=== PATIENT | female | born 1960 | race American Indian/Alaskan Native ===

== ENCOUNTER 2022-04-11 17:15 | Inpatient (IN) | payer OTHER ==
--- NOTE | 2022-04-11 17:18 | Emergency Department Report ---
ED Neuro Deficit HPI - General Stated Complaint: CODE STROKE Time Seen by Provider: 04/11/22 17:18 - History of Present Illness Initial Comments: Patient is a 61-year-old female presents emergency department complaints of possible stroke. Patient has history of TIAs. Patient had acute onset confusion, left-sided facial droop trouble with speech at approximately 4 PM. She also reports some generalized weakness to the lower extremities. - Related Data Home Medications: Home Medications Medication Instructions Recorded Confirmed Last Taken Aspirin [Aspirin BABY CHEW TAB] 81 mg PO DAILY 08/13/13 07/21/16 Unknown lisinopriL [Zestril] 20 mg PO QDAY 08/13/13 07/21/16 Unknown amLODIPine [Norvasc] 5 mg PO DAILY 07/19/16 07/21/16 Unknown Previous Rx's Medication Instructions Recorded Last Taken Type Meclizine [Antivert] 25 mg PO TID PRN #30 tablet 07/19/16 Unknown Rx levETIRAcetam [Keppra TAB] 500 mg PO BID #60 tablet 07/22/16 Unknown Rx Allergies/Adverse Reactions: Allergies Allergy/AdvReac Type Severity Reaction Status Date / Time Sulfa (Sulfonamide Allergy Itching Verified 04/11/22 18:51 Antibiotics) ED Review of Systems ROS: Stated complaint: CODE STROKE Other details as noted in HPI Constitutional: denies: chills, fever Eyes: denies: eye pain, eye discharge, vision change ENT: denies: ear pain, throat pain Respiratory: denies: cough, shortness of breath, wheezing Cardiovascular: denies: chest pain, palpitations Endocrine: no symptoms reported Gastrointestinal: denies: abdominal pain, nausea, diarrhea Genitourinary: denies: urgency, dysuria, discharge Musculoskeletal: denies: back pain, joint swelling, arthralgia Skin: denies: rash, lesions Neurological: weakness, confusion. denies: headache, paresthesias Psychiatric: denies: anxiety, depression Hematological/Lymphatic: denies: easy bleeding, easy bruising ED Past Medical Hx - Past Medical History Hx Hypertension: Yes Hx CVA: Yes (tia may 2013) Hx Congestive Heart Failure: No Hx Diabetes: Yes Hx Pulmonary Embolism: No Hx GERD: Yes Hx Renal Disease: No Hx Sickle Cell Disease: Yes (sickle cell trait) Hx Arthritis: Yes Hx Seizures: No Hx Asthma: No Hx COPD: Yes Hx Tuberculosis: No Additional medical history: Marfan's syndrome, thoracic aortic dissection/aneurysm with endovascular stent graft placement - Surgical History Hx Pacemaker: Yes Hx Internal Defibrillator: Yes Additional Surgical History: bowel obstruction, triple aaa repair - Social History Smoking Status: Never Smoker - Medications Home Medications: Home Medications Medication Instructions Recorded Confirmed Last Taken Type Aspirin [Aspirin BABY CHEW TAB] 81 mg PO DAILY 08/13/13 07/21/16 Unknown History lisinopriL [Zestril] 20 mg PO QDAY 08/13/13 07/21/16 Unknown History Meclizine [Antivert] 25 mg PO TID PRN #30 tablet 07/19/16 07/21/16 Unknown Rx amLODIPine [Norvasc] 5 mg PO DAILY 07/19/16 07/21/16 Unknown History levETIRAcetam [Keppra TAB] 500 mg PO BID #60 tablet 07/22/16 Unknown Rx ED Neuro Physical Exam - General General appearance: alert, in no apparent distress Suspected Stroke: Yes - Head Head exam: Present: atraumatic, normocephalic - Eye Eye exam: Present: normal appearance - ENT ENT exam: Present: mucous membranes moist - Neck Neck exam: Present: normal inspection - Respiratory Respiratory exam: Present: normal lung sounds bilaterally. Absent: respiratory distress - Cardiovascular Cardiovascular Exam: Present: regular rate, normal rhythm. Absent: systolic murmur, diastolic murmur, rubs, gallop - GI/Abdominal GI/Abdominal exam: Present: soft, normal bowel sounds - Rectal Rectal exam: Present: deferred - Extremities Exam Extremities exam: Present: normal inspection - Back Exam Back exam: Present: normal inspection - Neurological Exam Neurological exam: Present: alert, oriented X3 - NIHSS Assessment Interval: Baseline 1a. Level of Consciousness: alert/keenly responsive 1b. LOC Questions: answers both correctly 1c. LOC Commands: performs tasks correctly 2. Best Gaze: normal 3. Visual: no visual loss 4. Facial Palsy: normal symmetrical movement 5b. Motor Arm Right: no drift 5a. Motor Arm Left: no drift 6a. Motor Leg Left: no drift 6b. Motor Leg Right: no drift 7. Limb Ataxia: absent 8. Sensory: normal 9. Best Language: no aphasia 10. Dysarthria: normal 11. Extinction/Inattention: no abnormality Total Score: 0 Stroke Severity: No Stroke Symptoms - Psychiatric Psychiatric exam: Present: normal affect, normal mood - Skin Skin exam: Present: warm, dry, intact, normal color. Absent: rash ED Course Vital Signs 04/11/22 04/11/22 04/11/22 17:46 18:01 18:10 Temperature 98.6 F Pulse Rate 87 Respiratory 21 Rate Blood Pressure 153/68 O2 Sat by Pulse 97 97 100 Oximetry 04/11/22 04/11/22 18:15 18:45 Temperature Pulse Rate 67 69 Respiratory 14 15 Rate Blood Pressure 153/68 153/68 O2 Sat by Pulse 97 97 Oximetry - Reevaluation(s) Reevaluation #1: 04/11/22 19:12 CT head is negative patient to receive aspirin. Patient also has a 13mm possible carotid body mass. I discussed with neurology who recommend consultation with vascular surgery. We are consulting them. Patient was also reassessed given her history of Marfan's and also thoracic and abdominal aortic aneurysms. Patient currently has no chest pain, no abdominal pain. - Lab Data Result diagrams: 04/11/22 17:43 04/11/22 17:43 Lab Results 04/11/22 04/11/22 04/11/22 Range/Units 17:43 17:43 17:43 WBC 4.8 (4.5-11.0) K/mm3 RBC 5.23 H (3.65-5.03) M/mm3 Hgb 12.0 (10.1-14.3) gm/dl Hct 38.1 (30.3-42.9) % MCV 73 L (79-97) fl MCH 23 L (28-32) pg MCHC 31 (30-34) % RDW 27.8 H (13.2-15.2) % Plt Count 183 (140-440) K/mm3 PT 14.3 (12.2-14.9) Sec. INR 1.00 (0.87-1.13) APTT 29.6 (24.2-36.6) Sec. Sodium (137-145) mmol/L Potassium (3.6-5.0) mmol/L Chloride (98-107) mmol/L Carbon Dioxide (22-30) mmol/L Anion Gap mmol/L BUN (7-17) mg/dL Creatinine (0.6-1.2) mg/dL Estimated GFR ml/min BUN/Creatinine Ratio % Glucose (65-100) mg/dL POC Glucose (70-105) mg/dL Calcium (8.4-10.2) mg/dL Total Bilirubin (0.1-1.2) mg/dL AST (5-40) units/L ALT (7-56) units/L Alkaline Phosphatase (35-129) units/L Total Creatine Kinase 53 (30-135) units/L CK-MB (CK-2) 1.1 (0.0-4.0) ng/mL CK-MB (CK-2) Rel Index 2.0 (0-4) Troponin T < 0.010 (0.00-0.029) ng/mL Total Protein (6.3-8.2) g/dL Albumin (3.9-5) g/dL Albumin/Globulin Ratio % 04/11/22 04/11/22 Range/Units 17:43 18:49 WBC (4.5-11.0) K/mm3 RBC (3.65-5.03) M/mm3 Hgb (10.1-14.3) gm/dl Hct (30.3-42.9) % MCV (79-97) fl MCH (28-32) pg MCHC (30-34) % RDW (13.2-15.2) % Plt Count (140-440) K/mm3 PT (12.2-14.9) Sec. INR (0.87-1.13) APTT (24.2-36.6) Sec. Sodium 137 (137-145) mmol/L Potassium 3.9 (3.6-5.0) mmol/L Chloride 103.9 (98-107) mmol/L Carbon Dioxide 18 L (22-30) mmol/L Anion Gap 19 mmol/L BUN 14 (7-17) mg/dL Creatinine 1.2 (0.6-1.2) mg/dL Estimated GFR 55 ml/min BUN/Creatinine Ratio 12 % Glucose 136 H (65-100) mg/dL POC Glucose 133 H (70-105) mg/dL Calcium 9.4 (8.4-10.2) mg/dL Total Bilirubin 0.50 (0.1-1.2) mg/dL AST 11 (5-40) units/L ALT 10 (7-56) units/L Alkaline Phosphatase 63 (35-129) units/L Total Creatine Kinase (30-135) units/L CK-MB (CK-2) (0.0-4.0) ng/mL CK-MB (CK-2) Rel Index (0-4) Troponin T (0.00-0.029) ng/mL Total Protein 7.0 (6.3-8.2) g/dL Albumin 4.1 (3.9-5) g/dL Albumin/Globulin Ratio 1.4 % - EKG Data -: EKG Interpreted by Me EKG shows normal: sinus rhythm Rate: normal Interpretation: other (Prolonged RI, left atrial enlargement, right bundle branch block, nonspecific T wave changes in the lateral leads) - Radiology Data Radiology results: report reviewed, image reviewed - Medical Decision Making Patient is a 61-year-old female presents in the emergency department complaint of strokelike symptoms. Patient states that she has generalized weakness, left- sided facial droop, trouble with her speech. Patient is made a stroke alert and is sent to the CAT scan emergently. Patient did have stroke score prior to going to the CAT scan which is notable for stroke score was 0. Telemetry neurology has been present and has also evaluated patient. Plan to follow the recommendations patient likely to be admitted for stroke work-up. Given stroke score of 0 tPA is not considered - Core Measures AMI Core Measures Followed: Yes Critical care attestation.: If time is entered above; I have spent that time in minutes in the direct care of this critically ill patient, excluding procedure time. ED Disposition Clinical Impression: TIA (transient ischemic attack), Carotid body tumor, Lung mass Disposition: ADMITTED INPATIENT Is pt being admited?: Yes Does the pt Need Aspirin: Yes Condition: Stable
--- NOTE | 2022-04-11 17:52 | Cat Scan Report ---
CT head/brain wo con INDICATION / CLINICAL INFORMATION: 61 years Female; CODE STROKE CALL [phone] Stroke symptoms. TECHNIQUE: Routine CT head without contrast. All CT scans at this location are performed using CT dos e reduction for ALARA by means of automated exposure control. COMPARISON: None FINDINGS: BRAIN / INTRACRANIAL CONTENTS: No acute hemorrhage, mass effect, midline shift, hydrocephalus, or acu te, large territorial infarct. No signs of significant atrophy or chronic infarct. There are [id number] areas of decreased attenuation in the white matter of the cerebral hemisph eres. These are nonspecific findings and may be related to microangiopathy (hypertension, diabetes, a therosclerosis), given the patient's age. CRANIOCERVICAL JUNCTION: No significant abnormality. ORBITS: No significant abnormality of visualized orbits. SINUSES / MASTOIDS: Visualized paranasal sinuses and mastoid air cells are essentially clear. ADDITIONAL FINDINGS: None. IMPRESSION: 1. No focal mass, hemorrhage, hydrocephalus, or acute, large territorial infarct. Follow-up with diff usion imaging by MRI, as clinically warranted. CODE STROKE: Exam Completed (INVISIBLE BRACES ORTHODONTIST/CDT): 04/11/2022 4:40 PM Exam Reviewed (INVISIBLE BRACES ORTHODONTIST/CDT): 4:42 PM Time of Communication (INVISIBLE BRACES ORTHODONTIST/CDT): 4:45 PM Licensed Practitioner Receiving Report: Dr. Donovan Signer Name: Darren Yang MD, III Signed: 04/11/2022 5:47 PM Workstation Name: [id number]
--- NOTE | 2022-04-11 18:21 | Cat Scan Report ---
CTA neck without and with intravenous contrast material CLINICAL HISTORY: stroke sx 100 ML OMNI 350 TECHNIQUE: Following acquisition of a timing bolus 0.625 mm thick contiguous axial scans were obtained from aort ic arch to the skull base during rapid bolus intravenous contrast infusion. In addition to evaluation of axial source images multiplanar reconstructions were produced and reviewed for this report. 3 delroy ne MIP reconstructions were produced and reviewed. Contrast dose report: Omnipaque 350: 100 ml, administered intravenously All CT examinations performed at this facility utilize modulated dose reduction, iterative reconstruc tion or weight-based dosing, as appropriate, to obtain a radiation dose which is as low as can reason ably be achieved. FINDINGS: Thoracic aorta: Patient is status post endograft placement in the thoracic aorta. The origin and prox imal left subclavian artery appear to be excluded. There is a left common carotid artery and left sub clavian graft which demonstrates patency based on contrast opacification of this vascular graft. Ther e is no indication of stenosis at the origin of the brachiocephalic artery which is a common origin w ith the left common carotid artery.. Right carotid artery: Moderate tortuosity of the mid and distal right common carotid artery is observ ed. The vessel is large in caliber consistent with mild dolichoectasia. No additional abnormalities a re seen along the course of the RCCA, at the right carotid bifurcation or along the cervical portions of the ADRIAN. Left carotid artery: There is a well-circumscribed 13 mm diameter mass located between the proximal l eft internal carotid artery and left external carotid artery, straddling the carotid bifurcation. The re is peripheral calcification or enhancement of this lesion. Based on location of the finding possib ility of carotid body tumor. Differential diagnosis includes vagal fibroma or neuroforaminal versus e nlarged, hypervascular lymph node. Note is made of moderate tortuosity of the distal LICA which is mi ldly dilated compatible with dolichoectasia of this vessel. No additional abnormalities are noted wan ng the course of the left common carotid artery, at the left carotid bifurcation or along the course of the cervical segments of the LICA. Posterior circulation: Right vertebral artery is dominant. A hypoplastic left vertebral artery is obs erved. Contrast opacification of the left vertebral artery may be due to retrograde flow in this vess el. Contrast opacification of the V1 and proximal V2 segments of the left vertebral artery is not obs erved. The degree of stenosis, if any, is determined utilizing NASCET like criteria. In this case there is no indication of hemodynamically significant stenosis at the carotid bifurcations or elsewhere. There is a well-circumscribed 13 mm diameter mass located between the proximal left internal carotid artery and left external carotid artery, straddling the carotid bifurcation. There is peripheral calc ification or enhancement of this lesion. Based on location of the finding possibility of carotid body tumor. Differential diagnosis includes vagal fibroma or neuroforaminal versus enlarged, hypervascula r lymph node. Evaluation of the lung apices is unremarkable for a mixed attenuation groundglass and solid left uppe r lobe lung nodule measuring about 18 mm in diameter. This is increased in size compared to CTA chest 07/21/2016 at which time an 8 mm lesion was present in a similar location. This finding is suspicious for bronchogenic carcinoma. Bullous changes are observed along the medial aspect of both upper lobes and at the left lung apex Evaluation of the nonvascular soft tissue structures reveal no additional abnormality. There is no ot her indication of cervical lymphadenopathy. No abnormalities are seen along the course of the airway. Visualized portions of the parotid glands and the submandibular salivary glands have a normal appear ance. Thyroid gland has a normal appearance. . Evaluation of the cervical spine is remarkable for widespread cervical spondylosis without evidence o f central canal stenosis. IMPRESSION: 1. No indication of hemodynamically significant stenosis at the carotid bifurcations. 2. Status post endovascular stent placement secured and status post vascular bypass graft between the left common carotid artery and left subclavian artery. 3. 18 mm diameter lung lesion left upper lobe suspicious for bronchogenic carcinoma. 4. 13 mm mass located at the left carotid bifurcation suspicious for carotid body tumor as noted abov e. CTA head with intravenous contrast CLINICAL HISTORY: stroke sx 100 ML OMNI 350 TECHNIQUE: 0.625 mm thick contiguous axial scans were obtained from the skull base to the skull vertex during r apid bolus administration of intravenous contrast material. Multiplanar reconstructions were produced in the coronal and sagittal planes. In addition 3 plane MIP instructions were produced and reviewed for this report. The axial source images and reconstructed images were reviewed for this report. CONTRAST DOSE REPORT: Omnipaque 350: 100 ml administered intravenously. All CT scans at this location are performed using CT dose reduction for ALARA by means of automated e xposure control. FINDINGS: Internal carotid arteries: Dolichoectasia of the internal carotid arteries is demonstrated bilaterall y. There is no indication of intercranial stenosis along the course of the internal carotid arteries. Middle cerebral arteries:Normal and symmetrical M1 segments of the middle cerebral arteries are demon strated. No abnormalities are seen on evaluation of the insular or opercular branches. Anterior cerebral arteries:Bilaterally symmetrical A1 segments are demonstrated. No abnormalities are seen along the course of the A2 segments or their visualized pericallosal branches. Anterior communi cating artery is not identified. Vertebral arteries: Right vertebral artery is dominant. Both vertebral arteries reach the basilar art viktor origin. Basilar artery: Basilar artery is diminutive in size to large part due to the presence of origi n of both posterior cerebral arteries. Posterior cerebral arteries:Bilaterally symmetrical posterior cerebral arteries are identified. [place]:Not intact. see above. Dural sinuses: Dural venous sinuses are well demonstrated on this exam. There is no evidence of dural sinus thrombosis. IMPRESSION: 1. 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 2. No indication of hemodynamically significant stenosis or large vessel occlusion. Signer Name: Ammon Johnson MD Signed: 04/11/2022 6:17 PM Workstation Name: [id number]
--- NOTE | 2022-04-11 18:31 | Consultation ---
History of Present Illness History of present illness: [facility] Consult Note # Demographics Consult Type: Acute Stroke Level 1 (0-4.5 hrs) Patient Location: Emergency Room First Name: Shaista Last Name: Violet Date of : 1960 Age: 61 Gender: Female Facility: [facility] Time of Initial Page ( Time): 04/11/2022, 17:06 Time of Return Call ( Time): 04/11/2022, 17:06 # HPI Chief Complaint: speech changes History: 61F with prior strokes/TIA (2014), PPM for bradycardia, Marfan's syndrome complicated by aortic dissection (2005), HTN presents with difficulty speaking and generalized weakness. Seen to have a left-sided facial droop, no drift in limbs. Symptoms onset at 1600. Feels somewhat lightheaded. Just on ASA. BP with EMS 192/102. Had an endoscopy on Saturday for nausea/GERD. Possible Thrombolytic candidate: not on warfarin or NOACs no intracranial hemorrhage history # Scores Time of exam and NIHSS (): 04/11/2022, 17:12 Level of Consciousness 1a: [0] = Alert; keenly responsive LOC Questions 1b: [0] = Answers both questions correctly LOC Commands 1c: [0] = Performs both tasks correctly Best Gaze 2: [0] = Normal Visual 3: [0] = No visual loss Facial Palsy 4: [0] = Normal symmetrical movements Motor Arm Left 5a: [0] = No drift Motor Arm Right 5b: [0] = No drift Motor Leg Left 6a: [0] = No drift Motor Leg Right 6b: [0] = No drift Limb Ataxia 7: [0] = Absent Sensory 8: [0] = Normal Best Language 9: [0] = No aphasia Dysarthria 10: [0] = Normal Extinction and Inattention 11: [0] = No abnormality NIHSS Total: 0 # Data Head CT: no bleed per radiologist read CTA Head: no large vessel occlusion per radiologist read CTA Neck: patent vessels per radiologist read 13mm well circumscribed mass between internal and external carotids at the bifurcaiton, concerning for possible carotid body tumor # Assessment Impression: Transient Ischemic Attack High Risk # Plan Thrombolytic/Intervention: NOT IV Thrombolysis or IA Intervention candidate Thrombolytic Exclusion (< 3 hour window): NIHSS = 0 Intraarterial Exclusion: no large vessel occlusion (LVO) non-disabling Target Blood Pressure: SBP < 160 DBP < 105 Medication: ASA 325 x1 then 81 daily Consult vascular surgery re: carotid mass; if nothing to do, OK to start Plavix 300 x1 then 75 daily x3 weeks High intensity statin for LDL < 70 goal Other: consult on-site neurology service for full work-up and evaluation recommendations telemetry monitoring I have discussed my recommendations with the referring provider Disposition: admit # Logistics Telemedicine: Interactive 2 way audio and visual telecommunication technology was utilized during this visit Electronically signed at 04/11/2022 18:30 (Eastern Time) by Vu Caldwell MD Medications and Allergies Allergies Allergy/AdvReac Type Severity Reaction Status Date / Time Sulfa (Sulfonamide Allergy Itching Verified 07/19/16 10:48 Antibiotics) Home Medications Medication Instructions Recorded Confirmed Last Taken Type Aspirin [Aspirin BABY CHEW TAB] 81 mg PO DAILY 08/13/13 07/21/16 Unknown History lisinopriL [Zestril] 20 mg PO QDAY 08/13/13 07/21/16 Unknown History Meclizine [Antivert] 25 mg PO TID PRN #30 tablet 07/19/16 07/21/16 Unknown Rx amLODIPine [Norvasc] 5 mg PO DAILY 07/19/16 07/21/16 Unknown History levETIRAcetam [Keppra TAB] 500 mg PO BID #60 tablet 07/22/16 Unknown Rx Physical Examination - Vital Signs Vital Signs: Vital Signs Pulse Ox 97 04/11/22 17:46
[2022-04-11 18:34] LABS: Hematocrit 38.1 % (30.3-42.9); Mean Corpuscular HGB Conc 31 % (30-34); Mean Corpuscular Volume 73 fl (79-97); Platelet Count 183 K/mm3 (140-440); Red Blood Count 5.23 M/mm3 (3.65-5.03)
[2022-04-11 18:36] LABS: Red Cell Distribution Width 27.8 % (13.2-15.2)
[2022-04-11 18:54] LABS: Partial Thromboplastin Time 29.6 Sec. (24.2-36.6)
[2022-04-11 18:57] LABS: Creatine Kinase MB 1.1 ng/mL (0.0-4.0)
[2022-04-11 19:02] LABS: Albumin 4.1 g/dL (3.9-5); Calcium 9.4 mg/dL (8.4-10.2)
[2022-04-11] MEDS ORDERED: ASPIRIN 81 MG TAB CHEW PO ONE (19:13)
[2022-04-11] MEDS ORDERED: ALBUTEROL 2.5 MG/3 ML NEBU IH PRN (19:25)
[2022-04-11] MEDS ORDERED: ACETAMINOPHEN 325 MG TAB PO PRN (19:25)
[2022-04-11] MEDS ORDERED: MAGNESIUM HYDROXIDE (MOM) ORAL LIQD UDC PO PRN (19:25)
[2022-04-11] MEDS ORDERED: ONDANSETRON 4 MG/2 ML INJ IV PRN (19:25)
[2022-04-11] MEDS ORDERED: PROMETHAZINE 25 MG RECT SUPP PR PRN (19:25)
[2022-04-11] MEDS ORDERED: METOCLOPRAMIDE 10 MG TAB PO PRN (19:25)
[2022-04-11] MEDS ORDERED: HYDROmorphone 0.5 MG/0.5 ML INJ IV PRN (19:25)
--- NOTE | 2022-04-11 19:25 | History and Physical Report ---
History of Present Illness Chief complaint: I feel weak, left side and I could not talk History of present illness: 61 YO Female with Marfans Syndrome, Seizure Disorder, GERD, COPD, CVA, DM, Sickle Cell Trait, Anxiety about Health, presents to ED for evaluation. Patient reports "I feel weak on my left side and I could not talk". Patient states that she has experienced a sudden onset of left-sided facial weakness as well as difficulty speaking at approximate 1600 hrs. EMS was notified and upon arrival the patient was found to be in distress with a new focal neurologic deficit. A code stroke was called and the patient was transported to [facility] for further care and evaluation of the aforementioned symptoms. The patient was seen and evaluated in the emergency department department all lab and imaging studies reviewed. Patient found to have clinical symptoms consistent with CVA. The patient admitted to medical floor and initiated on CVA protocol. Teleneurology consulted. Pt denies fever, chills, CP, Palpitations, NVD, BRBPR, Hemoptysis, leg swelling, calf pain, head trauma, prolonged immobility/travel, individual/family history of DVT/PE, productive cough, skin rash, or recent ill contacts. Prior admission on 07/21/2016 reviewed. All medication listed at time of admission has been reconciled. Advanced care planning conducted in ED. Past History Past Medical History: COPD, stroke, other (See HPI) Past Surgical History: abd. aortic aneurysm repair Social history: single. denies: smoking, alcohol abuse, prescription drug abuse Family history: diabetes, hypertension Medications and Allergies Allergies Allergy/AdvReac Type Severity Reaction Status Date / Time Sulfa (Sulfonamide Allergy Itching Verified 04/11/22 18:51 Antibiotics) Home Medications Medication Instructions Recorded Confirmed Last Taken Type Aspirin [Aspirin BABY CHEW TAB] 81 mg PO DAILY 08/13/13 07/21/16 Unknown History lisinopriL [Zestril] 20 mg PO QDAY 08/13/13 07/21/16 Unknown History Meclizine [Antivert] 25 mg PO TID PRN #30 tablet 07/19/16 07/21/16 Unknown Rx amLODIPine [Norvasc] 5 mg PO DAILY 07/19/16 07/21/16 Unknown History levETIRAcetam [Keppra TAB] 500 mg PO BID #60 tablet 07/22/16 Unknown Rx Review of Systems Constitutional: no weight loss, no fever, no chills, no sweats Ears, nose, mouth and throat: no ear pain, no tinnitis, no decreased hearing, no nasal congestion Breasts: no change in shape Cardiovascular: no chest pain, no orthopnea, no edema, no syncope, no lightheadedness Respiratory: no cough Gastrointestinal: no abdominal pain, no nausea, no constipation, no change in bowel habits, no coffee ground emesis Genitourinary Female: no pelvic pain, no flank pain, no dysuria, no urinary frequency, no urgency Rectal: no pain, no incontinence, no bleeding Musculoskeletal: no neck stiffness, no shooting arm pain, no arm numbness/tin gling, no shooting leg pain, no leg numbness/tingling Integumentary: no rash, no redness, no wounds, no boils Neurological: weakness, lack of coordination, change in speech, gait dysfunction, motor disturbance, no head injury, no transient paralysis Psychiatric: no anxiety, no change in sleep habits, no hypersomnia, no change in appetite, no suicidal ideation Endocrine: no heat intolerance, no polyphagia, no polydipsia, no excessive sweating Hematologic/Lymphatic: no easy bleeding Allergic/Immunologic: no urticaria Exam - Constitutional Vitals: Temp Pulse Resp BP Pulse Ox 98.6 F 69 15 153/68 97 04/11/22 18:10 04/11/22 18:45 04/11/22 18:45 04/11/22 18:45 04/11/22 18:45 General appearance: Present: mild distress - EENT Eyes: Present: PERRL ENT: hearing intact, clear oral mucosa - Neck Neck: Present: supple, normal ROM - Respiratory Respiratory effort: normal Respiratory: bilateral: CTA - Cardiovascular Heart Sounds: Present: S1 & S2. Absent: rub, click - Extremities Extremities: pulses symmetrical, No edema Peripheral Pulses: within normal limits - Abdominal General gastrointestinal: Present: soft, non-tender, non-distended, normal bowel sounds Female genitourinary: Present: normal - Integumentary Integumentary: Present: clear, warm, dry - Musculoskeletal Musculoskeletal: gait normal, strength equal bilaterally - Psychiatric Psychiatric: appropriate mood/affect, intact judgment & insight - Neurologic Neurologic: CNII-XII intact, moves all extremities HEART Score - HEART Score Troponin: Troponin T < 0.010 ng/mL (0.00-0.029) 04/11/22 17:43 Results - Labs CBC & Chem 7: 04/11/22 17:43 04/11/22 17:43 Labs: Abnormal lab results 04/11/22 04/11/22 04/11/22 Range/Units 17:43 17:43 18:49 RBC 5.23 H (3.65-5.03) M/mm3 MCV 73 L (79-97) fl MCH 23 L (28-32) pg RDW 27.8 H (13.2-15.2) % Carbon Dioxide 18 L (22-30) mmol/L Glucose 136 H (65-100) mg/dL POC Glucose 133 H (70-105) mg/dL Assessment and Plan - Patient Problems (1) CVA (cerebral vascular accident) Current Visit: Yes Status: Acute Plan to address problem: CVA protocol: CT head, neuro check, seizure precaution aspiration caution, fall precautions, physical therapy consulted, Occupational Therapy consulted, speech therapy consulted, carotid Doppler, echocardiogram, antiplatelet therapy, supportive care. (2) Carotid body tumor Current Visit: Yes Status: Acute Plan to address problem: Vascular surgery team consulted. Further care and evaluation as per vascular surgery team. (3) Lung mass Current Visit: Yes Status: Acute Plan to address problem: Outpatient oncology follow-up, supportive care. (4) DVT prophylaxis Current Visit: No Status: Acute Plan to address problem: SCD to bilateral lower extremities while in bed (5) Advance care planning Current Visit: Yes Status: Acute Plan to address problem: Disease education done, care plan discussed, diagnoses discussed, prognosis discussed, patient is full code. Patient knowledges understanding and agreement with care plan, +30 minutes. (6) Preventative health care Current Visit: Yes Status: Acute Plan to address problem: Patient counseled regarding balanced diet, outpatient follow-up with primary care physician for all age and risk factor appropriate screening test. +30 minutes.
[2022-04-11] MEDS ORDERED: MECLIZINE 25 MG TAB PO PRN (19:28)
[2022-04-11 20:59] LABS: Thrombin Time 57.7 Sec. (15.1-19.6)
[2022-04-11 22:07] LABS: Anisocytosis 3+; Basophils % (Manual) 0 % (0.0-1.8); Hypochromasia 1+; Monocytes % (Manual) 0 % (0.0-7.3); Total Cells Counted 100
[2022-04-11 22:08] LABS: Ovalocytes 1+
[2022-04-11 22:10] LABS: Platelet Estimate Consistent w Auto
[2022-04-11] MEDS: levETIRAcetam 500 MG TAB PO SCH (22:42)
[2022-04-12] MEDS: oxyCODONE /ACETAMINOPHEN 5-325MG TAB PO PRN (04:50)
[2022-04-12] MEDS ORDERED: amLODIPine 5 MG TAB PO SCH (10:00)
[2022-04-12] MEDS: levETIRAcetam 500 MG TAB PO SCH ×2 (10:26→22:11)
[2022-04-12] MEDS: LISINOPRIL 20 MG TAB PO SCH (10:26)
[2022-04-12] MEDS: amLODIPine 5 MG TAB PO SCH (11:49)
[2022-04-12] MEDS: ASPIRIN 325 MG TAB PO SCH (11:49)
--- NOTE | 2022-04-12 12:12 | Electrocardiograph Report ---
[facility] [place] Test Date: 2022-04-11 Test Time: 18:17:32 Pat Name: ANGELO CROCKETT Department: Room: A474 1 Gender: F Inspector And Tester: ABRAN : 1960 Requested By: RUDDY JACOBS Order Number: [id number] Reading MD: Dustin Escobar Measurements Intervals [place] Rate: 70 P: 24 WY: 230 QRS: 45 QRSD: 130 T: 41 QT: 447 QTc: 482 Interpretive Statements Sinus rhythm Prolonged WY interval Probable left atrial enlargement Right bundle branch block Nonspecific T abnormalities, lateral leads No previous ECG available for comparison Electronically Signed On 04-12-2022 12:12:06 EDT by Dustin Escobar
--- NOTE | 2022-04-12 13:16 | Progress Note ---
Assessment and Plan (1) CVA (cerebral vascular accident) Current Visit: Yes Status: Acute Plan to address problem: CVA protocol: CT head, neuro check, seizure precaution aspiration caution, fall precautions, physical therapy consulted, Occupational Therapy consulted, speech therapy consulted, carotid Doppler, echocardiogram, antiplatelet therapy, supportive care. (2) Carotid body tumor Current Visit: Yes Status: Acute Plan to address problem: Vascular surgery team consulted. Further care and evaluation as per vascular surgery team. (3) Lung mass Current Visit: Yes Status: Acute Plan to address problem: Outpatient oncology follow-up, supportive care. (4) DVT prophylaxis Current Visit: No Status: Acute Plan to address problem: SCD to bilateral lower extremities while in bed (5) Advance care planning Current Visit: Yes Status: Acute Plan to address problem: Disease education done, care plan discussed, diagnoses discussed, prognosis discussed, patient is full code. Patient knowledges understanding and agreement with care plan, +30 minutes. (6) Preventative health care Current Visit: Yes Status: Acute Plan to address problem: Patient counseled regarding balanced diet, outpatient follow-up with primary care physician for all age and risk factor appropriate screening test. +30 minutes. -- Ordered MRI brain and neurology consult. But patient cannot get MRI as she has a pacemaker. Will wait for neurology evaluation. We will get a chest x-ray for patient history of lung mass. 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 Continue to follow. Subjective Date of service: 04/12/22 Interval history: Patient seen and examined. Medical records and medication list reviewed. No acute event overnight noted by the RN. Patient denies any chest pain or difficulty breathing. Patient is tolerating diet. Pending MRI study. Discussed plan of care at bedside with patient. Objective - Exam Narrative Exam: GENERAL: well-developed elderly -[place] obese female lying on bed appeared to be in no discomfort. HEENT: Normocephalic. Atraumatic. No conjunctival congestion or icterus. Patient has moist mucous membranes. NECK: Supple. Trachea midline. CHEST/LUNGS: Clear to auscultated bilaterally, breathing nonlabored. No wheezes crackles or rhonchi. HEART/CARDIOVASCULAR: Regular in rate and rhythm. S1 and S2 positive. ABDOMEN: Abdomen is soft, nontender. Patient has normal bowel sounds. SKIN: There is no rash. Warm and dry. NEURO: No focal motor deficit. Follows command. MUSCULOSKELETAL: No joint effusion or tenderness. EXTRIMITY: No edema, no cyanosis or clubbing. PSYCH: Cooperative. - Constitutional Vitals: Vital Signs - 12hr 04/12/22 07:41 Temperature 98.5 F Pulse Rate 67 Respiratory 18 Rate Blood Pressure 130/77 O2 Sat by Pulse 94 Oximetry - Labs CBC & Chem 7: 04/11/22 17:43 04/11/22 17:43 Labs: Abnormal lab results 04/11/22 04/11/22 04/11/22 Range/Units 17:43 17:43 17:43 RBC 5.23 H (3.65-5.03) M/mm3 MCV 73 L (79-97) fl MCH 23 L (28-32) pg RDW 27.8 H (13.2-15.2) % Seg Neuts % (Manual) 81.0 H (40.0-70.0) % Lymphocytes # (Manual) 0.8 L (1.2-5.4) K/mm3 Thrombin Time 57.7 H (15.1-19.6) Sec. Carbon Dioxide 18 L (22-30) mmol/L Glucose 136 H (65-100) mg/dL POC Glucose (70-105) mg/dL 04/11/22 Range/Units 18:49 RBC (3.65-5.03) M/mm3 MCV (79-97) fl MCH (28-32) pg RDW (13.2-15.2) % Seg Neuts % (Manual) (40.0-70.0) % Lymphocytes # (Manual) (1.2-5.4) K/mm3 Thrombin Time (15.1-19.6) Sec. Carbon Dioxide (22-30) mmol/L Glucose (65-100) mg/dL POC Glucose 133 H (70-105) mg/dL HEART Score - HEART Score Troponin: Troponin T < 0.010 ng/mL (0.00-0.029) 04/11/22 17:43
--- NOTE | 2022-04-12 14:30 | XRay Report ---
CHEST 1 VIEW INDICATION: lung mass. COMPARISON: 08/14/[address] neck yesterday. FINDINGS: Support devices: Cardiac leads project in expected position. Descending thoracic aortic stent graft i s noted, inferior extent is increased when compared with the remote prior. Heart: Normal. Lungs/Pleura: No acute pulmonary or pleural findings. IMPRESSION: 1. Groundglass density at the left lung apex seen on the CT neck from yesterday is not visualized rad iographically. Lungs are clear. Signer Name: Enzo Johns MD Signed: 04/12/2022 2:26 PM Workstation Name: [id number]
--- NOTE | 2022-04-12 14:40 | Consultation ---
History of Present Illness Consult date: 04/12/22 Reason for Consult: TIA Chief complaint: Light-headedness with nausea/emesis with unsteadiness History of present illness: 61 yo right-handed female with cva, htn, dm, ppm for bradycardia, marfans syndrome, aortic dissection w/ stenting, who presents to the hospital where she felt dizzy (light-headed) and something was wrong with her speech (~16:00 yesterday), and then nausea/emesis and then noticed a tendency to lean to the left side, along with a left facial droop. She notes that her symptoms lasted until she arrived to the ED. Currently, she is at her baseline. She is aware of the bronchogenic mass (> 2 years) and it is being monitored via oncology. She notes she suffered a similar episode a few years ago and she was diagnosed with a stroke at the time. Past History Past Medical History: COPD, stroke, other (marfans syndrome) Past Surgical History: abd. aortic aneurysm repair Social history: single. denies: smoking, alcohol abuse, prescription drug abuse Family history: diabetes, hypertension Medications and Allergies Allergies Allergy/AdvReac Type Severity Reaction Status Date / Time Sulfa (Sulfonamide Allergy Itching Verified 04/11/22 18:51 Antibiotics) Home Medications Medication Instructions Recorded Confirmed Last Taken Type Aspirin [Aspirin BABY CHEW TAB] 81 mg PO DAILY 08/13/13 04/12/22 04/11/22 History amLODIPine [Norvasc] 10 mg PO DAILY 07/19/16 04/12/22 04/11/22 History Ferrous Sulfate [Iron 325 MG] 325 mg PO DAILY 04/12/22 04/12/22 04/11/22 History Latanoprost 0.005% 1 drop OU QHS 04/12/22 04/12/22 04/11/22 History Losartan [Cozaar] 100 mg PO DAILY 04/12/22 04/12/22 04/11/22 History Active Meds: Active Medications Acetaminophen (Acetaminophen 325 Mg Tab) 650 mg PO Q4H PRN PRN Reason: Pain, Mild (1-3) Albuterol (Albuterol 2.5 Mg/3 Ml Nebu) 2.5 mg IH Q3HRT PRN PRN Reason: Shortness Of Breath Amlodipine Besylate (Amlodipine 5 Mg Tab) 10 mg PO DAILY RAINE Last Admin: 04/12/22 11:49 Dose: 10 mg Aspirin (Aspirin 325 Mg Tab) 325 mg PO QDAY [facility] Last Admin: 04/12/22 11:49 Dose: 325 mg Atorvastatin Calcium (Atorvastatin 40 Mg Tab) 40 mg PO QHS [facility] Last Admin: 04/11/22 22:43 Dose: Not Given Bisacodyl (Bisacodyl 10 Mg Rect Supp) 10 mg HI QDAY PRN PRN Reason: Constipation Hydromorphone HCl (Hydromorphone 0.5 Mg/0.5 Ml Inj) 0.5 mg IV Q23H PRN PRN Reason: Pain , Severe (7-10) Levetiracetam (Levetiracetam 500 Mg Tab) 500 mg PO BID [facility] Last Admin: 04/12/22 10:26 Dose: Not Given Lisinopril (Lisinopril 20 Mg Tab) 20 mg PO QDAY [facility] Last Admin: 04/12/22 10:26 Dose: Not Given Magnesium Hydroxide (Magnesium Hydroxide (Mom) Oral Liqd Udc) 30 ml PO Q4H PRN PRN Reason: Constipation Meclizine HCl (Meclizine 25 Mg Tab) 25 mg PO TID PRN PRN Reason: Vertigo Metoclopramide HCl (Metoclopramide 10 Mg Tab) 10 mg PO Q6H PRN PRN Reason: Nausea And Vomiting Ondansetron HCl (Ondansetron 4 Mg/2 Ml Inj) 4 mg IV Q8H PRN PRN Reason: Nausea And Vomiting Oxycodone/Acetaminophen (Oxycodone /Acetaminophen 5-325mg Tab) 1 tab PO Q16H PRN PRN Reason: Pain, Moderate (4-6) Last Admin: 04/12/22 04:50 Dose: 1 tab Promethazine HCl (Promethazine 25 Mg Rect Supp) 25 mg HI Q6H PRN PRN Reason: Nausea And Vomiting Sodium Chloride (Sodium Chloride 0.9% 10 Ml Flush Syringe) 10 ml IV PRN PRN PRN Reason: LINE FLUSH Review of Systems All systems: negative (as per hpi;) Physical Examination - Vital Signs Vital Signs: Vital Signs Pulse Ox 97 04/11/22 17:46 - Physical Exam Narrative exam: Gen: nad, well-nourished; Head: normocephalic, non-traumatic; Eyes: anicteric sclera, no gaze deviation; no ptosis; ENT: normal vocalization; CVS: warm and well-perfused; Pulm: no respiratory distress; GI: non-distended,; Ext: no cyanosis at distal extremities; Skin: no acute rash at distal extremities; Heme: no pathologic bruising at distal extremities; Neuro: alert, oriented to name, age, month, year, no dysarthria, no aphasia, CN 2 - PERRL, visual [place] intact, CN 3, 4, 6 - EOMI, CN 5 - facial sensation symmetric to light touch, CN 7 - facial movement symmetric, CN 8 - hearing grossly intact, CN 9, 10 - uvula midline, CN 11 - symmetric shoulder movement, CN 12 - tongue midline; Motor - at least 4/5 at all exts; Sensory - light touch symmetric, Cerebellar - fnf/hts intact, Gait - deferred secondary to fall risk; NIHSS (1a.) Level of Consciousness:0 (1b.) LOC Questions:0 (1c.) LOC Commands:0 (2.) Best Gaze:0 (3.) Visual:0 (4.) Facial Palsy:0 (5a.) Motor Arm, Left:0 (5b.) Motor Arm, Right:0 (6a.) Motor Leg, Left:0 (6b.) Motor Leg, Right:0 (7.) Limb Ataxia:0 (8.) Sensory:0 (9.) Best Language:0 (10.) Dysarthria:0 (11.) Extinction and Inattention:0 NIHSS Total Score:0 Results - Laboratory Findings CBC and BMP: 04/11/22 17:43 04/11/22 17:43 Abnormal Lab Findings: Abnormal Labs 04/11/22 04/11/22 04/11/22 17:43 17:43 17:43 RBC 5.23 H MCV 73 L MCH 23 L RDW 27.8 H Seg Neuts % (Manual) 81.0 H Lymphocytes # (Manual) 0.8 L Thrombin Time 57.7 H Carbon Dioxide 18 L Glucose 136 H POC Glucose 04/11/22 18:49 RBC MCV MCH RDW Seg Neuts % (Manual) Lymphocytes # (Manual) Thrombin Time Carbon Dioxide Glucose POC Glucose 133 H Assessment and Plan 61 yo right-handed female with cva, htn, dm, ppm for bradycardia, marfans syndrome, aortic dissection w/ stenting, bronchogenic mass, who presents to the hospital where she noticed dizziness ("light-headedness") and then nausea/emesis and then noticed a tendency to lean to the left side, along with a facial droop. 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 1. TIA - aspirin 81 mg po qday; plavix 75 mg p qday x21 days; statin thearpy for a goal ldl of 70; confirm ct brain w/ wo contrast (ordered); carotid body tumor evaluation (concern for light-headedness secondary to this mass, which then triggers hypoperfusion; since this is the second time the patient has experienced the exact same symptoms years apart); tia education prior to discharge. 2. Carotid Body Tumor - evaluation by vascular surgery. 3. Bronchogenic Mass - known by patient and followed by oncology. 4. Hypertension - aim for normotension. 5. DM - aim for euglycemia. Hiram Quinones MD Neurology [id number]
--- NOTE | 2022-04-12 15:23 | Vascular Lab Report ---
DUPLEX DOPPLER ULTRASOUND CAROTID, BILATERAL INDICATION / CLINICAL INFORMATION: Stroke. COMPARISON: CTA neck 04/11/2022. FINDINGS: RIGHT CAROTID: Minimal atherosclerotic plaque. - PLAQUE ESTIMATE (%): < 50% - CCA velocity: 85 cm/sec. - ICA peak systolic velocity: 58 cm/sec. - ICA/CCA PSV Ratio: Less than 2. Right Vertebral Artery: Antegrade flow. LEFT CAROTID: Minimal atherosclerotic plaque. - PLAQUE ESTIMATE (%): < 50% - CCA velocity: 76 cm/sec. - ICA peak systolic velocity: 38 cm/sec. - ICA/CCA PSV Ratio: Less than 2. Left Vertebral Artery: Antegrade flow. IMPRESSION: 1. Right Internal Carotid Artery: Less than 50% diameter stenosis. 2. Left Internal Carotid Artery: Less than 50% diameter stenosis. 3. Hypoechoic mass visualized between the left ECA and ICA measuring 1.5 x 0.8 x 0.7 cm. Carotid body tumor should be considered. Velocity criteria are extrapolated from diameter data as defined by the Society of Radiologists in Ul trasound Consensus Conference, Radiology 2003; 229;340-346. NO STENOSIS (NORMAL) - Plaque = none; ICA PSV < 125 cm/sec; ICA/CCA PSV Ratio < 2.0 <50% STENOSIS - Plaque < 50%; ICA PSV < 125 cm/sec; ICA/CCA PSV Ratio < 2.0 50-69% STENOSIS - Plaque > 50%; ICA PSV = 125-230 cm/sec; ICA/CCA PSV Ratio = 2.0-4.0 >70% BUT <100% STENOSIS - Plaque > 50%; ICA PSV > 230 cm/sec; ICA/CCA PSV Ratio > 4.0 NEAR OCCLUSION - Plaque = visible lumen; ICA PSV = high/low/none; ICA/CCA PSV Ratio = variable TOTAL OCCLUSION - Plaque = no lumen; ICA PSV = none; ICA/CCA PSV Ratio = N/A Scribed by: Trice Lopez RDMS, RVT, DEMETRIOKS Scribed: 04/12/2022 2:13 PM I have reviewed the images, agree with this report, and edited this report as needed. Signer Name: Ky Quinones MD Signed: 04/12/2022 3:18 PM Workstation Name: [id number]
[2022-04-12 23:38] LABS: Bacteria,Urine 1+ /HPF (Negative); Mucus,Urine FEW /HPF
[2022-04-12 23:52] LABS: Color,Urine Colorless (Yellow)
[2022-04-12 23:53] LABS: Bilirubin,Urine NEG (Negative); Blood,Urine Small (Negative); Protein,Urine <15 mg/dL mg/dL (Negative); Urobilinogen,Urine < 2.0 mg/dL (<2.0)
[2022-04-13] MEDS: oxyCODONE /ACETAMINOPHEN 5-325MG TAB PO PRN (00:44)
--- NOTE | 2022-04-13 08:35 | Cat Scan Report ---
CT head/brain wo/w con INDICATION: Metastasis or Stroke. TECHNIQUE: Routine CT head. All CT scans at this location are performed using CT dose reduction for A AYAKA by means of automated exposure control. COMPARISON: April 11, 2022 FINDINGS: Intracranial: Guzman-white matter differentiation is maintained. No intracranial hemorrhage. No extra a xial collection. No hydrocephalus. No herniation. Mild white matter hypoattenuation consistent with s equela from chronic microvascular disease. Remote left cerebellar lacunar infarction. Sinuses: Paranasal sinuses and mastoid air cells are essentially clear. Orbits: Globes are intact. Calvarium: No acute fracture. IMPRESSION: 1. No acute intracranial abnormality. Signer Name: Sebastian Leiva MD Signed: 04/13/2022 8:30 AM Workstation Name: [id number]
[2022-04-13] MEDS: ASPIRIN 325 MG TAB PO SCH (10:06)
[2022-04-13] MEDS: levETIRAcetam 500 MG TAB PO SCH (10:06)
[2022-04-13] MEDS: amLODIPine 5 MG TAB PO SCH (10:07)
[2022-04-13] MEDS: LISINOPRIL 20 MG TAB PO SCH (10:12)
[2022-04-13] MEDS ORDERED: ASPIRIN 325 MG TAB PO SCH (11:38)
[2022-04-13] MEDS: LOSARTAN 50 MG TAB PO SCH (13:16)
--- NOTE | 2022-04-13 15:15 | Discharge Summary ---
Providers - Providers Date of Admission: 04/11/22 19:26 Date of discharge: 04/14/22 Attending physician: SHARLA FUENTES 04/11/22 19:26 Occupational Therapy Evaluate and Treat [CONS] Routine Comment: Reason For Exam: Neuro deficits Physical Therapy Evaluation and Treat [CONS] Routine Comment: Reason For Exam: Neuro deficits 04/11/22 19:27 Speech Therapy Evaluation and Treat [CONS] Routine Reason For Exam: swallow eval 04/12/22 08:57 Consult to Physician [CONS] Routine Comment: Consulting Provider: RYLIE DEL RIO Physician Instructions: Reason For Exam: possible CVA 04/13/22 10:07 Consult to Physician [CONS] Routine Comment: Consulting Provider: SARAH WYLIE Physician Instructions: Reason For Exam: carotid body tumor 04/13/22 13:43 Physical Therapy Evaluation and Treat [CONS] Routine Comment: outpatient -PT Reason For Exam: eval and treat Primary care physician: ADULT [employer] Hospitalization Condition: Stable Hospital course: 61 yo right-handed female with cva, htn, dm, ppm for bradycardia, marfans syndrome, aortic dissection w/ stenting, who presents to the hospital where she felt dizzy (light-headed) and something was wrong with her speech (~16:00 yesterday), and then nausea/emesis and then noticed a tendency to lean to the left side, along with a left facial droop. She notes that her symptoms lasted until she arrived to the ED. Currently, she is at her baseline. She is aware of the bronchogenic mass (> 2 years) and it is being monitored via oncology. She notes she suffered a similar episode a few years ago and she was diagnosed with a stroke at the time. Disposition: 01 HOME / SELF CARE / HOMELESS Final Discharge Diagnosis (Prints w/discharge instructions): 1. TIA -. 2. Carotid Body Tumor. 3. Bronchogenic Mass. 4. Hypertension. 5. DM - aim for euglycemia. Time spent for discharge: 34 minutes Core Measure Documentation - Palliative Care Palliative Care/ Comfort Measures: Not Applicable - Core Measures Any of the following diagnoses?: none Exam - Physical Exam Narrative exam: GENERAL: well-developed elderly -Indian obese female lying on bed appeared to be in no discomfort. HEENT: Normocephalic. Atraumatic. No conjunctival congestion or icterus. Patient has moist mucous membranes. NECK: Supple. Trachea midline. CHEST/LUNGS: Clear to auscultated bilaterally, breathing nonlabored. No wheezes crackles or rhonchi. HEART/CARDIOVASCULAR: Regular in rate and rhythm. S1 and S2 positive. ABDOMEN: Abdomen is soft, nontender. Patient has normal bowel sounds. SKIN: There is no rash. Warm and dry. NEURO: No focal motor deficit. Follows command. MUSCULOSKELETAL: No joint effusion or tenderness. EXTRIMITY: No edema, no cyanosis or clubbing. PSYCH: Cooperative. - Constitutional Vitals: Temp Pulse Resp BP Pulse Ox 98.8 F 64 18 138/74 96 04/13/22 12:23 04/13/22 13:16 04/13/22 12:23 04/13/22 13:16 04/13/22 12:23 Plan Activity: advance as tolerated Weight Bearing Status: Weight Bear as Tolerated Diet: low fat, low salt Follow up with: PRIMARY CARE, [Primary Care Provider] - 7 Days Prescriptions: AtorvaSTATin [Lipitor] 40 mg PO QHS #30 tablet Aspirin EC [Halfprin EC] 81 mg PO QDAY #30 tablet. Other Discharge Orders: Physicial Therapy (Amb) Location: None Selected
--- NOTE | 2022-04-13 21:31 | Consultation ---
History of Present Illness - Reason for Consult Consult date: 04/13/22 Carotid Body Tumor Requesting physician: SHARLA FUENTES - History of Present Illness The patient is a 61-year-old female with history of Marfan's syndrome who presented to the emergency department with complaints of left-sided weakness as well as generalized lower extremity weakness just prior to the admission. She states that it began while she was on the phone and leaned her head directly back. This resulted in her feeling dizzy and feeling like she was going to pass out and then falling over and to the left side of her body secondary to the weakness. She states that every time she tried to get up she felt lightheaded. When EMS arrived she attempted to walk to the ambulance however upon standing she was unable to use her leg secondary to bilateral lower extremity weakness. She had she had an episode similar to this back in 2016. This improved without intervention. She has no additional complaints at this time. Past History Past Medical History: COPD, stroke, other (Marfan's, bronchogenic carcinoma) Past Surgical History: abd. aortic aneurysm repair, Other (Left carotid to left subclavian bypass) Social history: single. denies: smoking, alcohol abuse, prescription drug abuse Family history: diabetes, hypertension Medications and Allergies Allergies Allergy/AdvReac Type Severity Reaction Status Date / Time Sulfa (Sulfonamide Allergy Itching Verified 04/11/22 18:51 Antibiotics) Home Medications Medication Instructions Recorded Confirmed Last Taken Type Aspirin [Aspirin BABY CHEW TAB] 81 mg PO DAILY 08/13/13 04/12/22 04/11/22 History amLODIPine 10 mg PO DAILY 07/19/16 04/12/22 04/11/22 History Ferrous Sulfate [Iron 325 MG] 325 mg PO DAILY 04/12/22 04/12/22 04/11/22 History Latanoprost 0.005% 1 drop OU QHS 04/12/22 04/12/22 04/11/22 History Losartan [Cozaar] 100 mg PO DAILY 04/12/22 04/12/22 04/11/22 History Aspirin EC [Halfprin EC] 81 mg PO QDAY #30 tablet. 04/13/22 Unknown Rx AtorvaSTATin [Lipitor] 40 mg PO QHS #30 tablet 04/13/22 Unknown Rx Active Meds: Active Medications Acetaminophen (Acetaminophen 325 Mg Tab) 650 mg PO Q4H PRN PRN Reason: Pain, Mild (1-3) Albuterol (Albuterol 2.5 Mg/3 Ml Nebu) 2.5 mg IH Q3HRT PRN PRN Reason: Shortness Of Breath Amlodipine Besylate (Amlodipine 5 Mg Tab) 10 mg PO DAILY [facility] Last Admin: 04/13/22 10:07 Dose: 10 mg Aspirin (Aspirin 325 Mg Tab) 81 mg PO QDAY [facility] Atorvastatin Calcium (Atorvastatin 40 Mg Tab) 40 mg PO QHS [facility] Last Admin: 04/12/22 22:11 Dose: Not Given Bisacodyl (Bisacodyl 10 Mg Rect Supp) 10 mg VT QDAY PRN PRN Reason: Constipation Hydromorphone HCl (Hydromorphone 0.5 Mg/0.5 Ml Inj) 0.5 mg IV Q23H PRN PRN Reason: Pain , Severe (7-10) Losartan Potassium (Losartan 50 Mg Tab) 100 mg PO QDAY [facility] Last Admin: 04/13/22 13:16 Dose: 100 mg Magnesium Hydroxide (Magnesium Hydroxide (Mom) Oral Liqd Udc) 30 ml PO Q4H PRN PRN Reason: Constipation Meclizine HCl (Meclizine 25 Mg Tab) 25 mg PO TID PRN PRN Reason: Vertigo Metoclopramide HCl (Metoclopramide 10 Mg Tab) 10 mg PO Q6H PRN PRN Reason: Nausea And Vomiting Ondansetron HCl (Ondansetron 4 Mg/2 Ml Inj) 4 mg IV Q8H PRN PRN Reason: Nausea And Vomiting Oxycodone/Acetaminophen (Oxycodone /Acetaminophen 5-325mg Tab) 1 tab PO Q16H PRN PRN Reason: Pain, Moderate (4-6) Last Admin: 04/13/22 00:44 Dose: 1 tab Promethazine HCl (Promethazine 25 Mg Rect Supp) 25 mg VT Q6H PRN PRN Reason: Nausea And Vomiting Sodium Chloride (Sodium Chloride 0.9% 10 Ml Flush Syringe) 10 ml IV PRN PRN PRN Reason: LINE FLUSH Review of Systems All systems: negative Exam - Constitutional Vitals: Temp Pulse Resp BP Pulse Ox 97.8 F 66 16 133/76 96 04/13/22 19:29 04/13/22 19:29 04/13/22 19:29 04/13/22 19:29 04/13/22 19:29 General appearance: Present: no acute distress - Respiratory Respiratory effort: normal - Cardiovascular Rhythm: regular - Extremities Extremities: no ischemia, pulses intact, abnormal (Prominent pulsatile mass right neck) - Abdominal General gastrointestinal: Present: soft Female genitourinary: Present: deferred - Rectal Rectal Exam: deferred Results - Labs CBC & Chem 7: 04/11/22 17:43 04/11/22 17:43 Labs: Abnormal lab results 04/12/22 Range/Units 23:00 Urine Blood Small A (Negative) - Imaging and Cardiology CT Scan - head: image reviewed Assessment and Plan The patient is a 61-year-old female with a history of Marfan's and an aortic dissection requiring thoracoabdominal stent graft placement. She presented with dizziness and near passing out with extending her neck. Upon further di scussion the patient states she can feel this happening every time she extends her neck. Given the tortuosity of her carotid vessels, which is likely secondary to her Marfan's syndrome, she is likely kinking her vessels with extension of her neck which causes her symptoms of near syncope. She was also found to have a mass in her neck between her carotid bifurcation and a carotid body tumor is on the list of differentials. The patient will require work-up to determine what the mass is the years however she has a vascular surgeon Dr. Crystal Lehman at [facility]. He can manage this work-up if he does not already have prior knowledge of this mass. There is no need for urgent intervention at this time.
[2022-04-14 04:05] VITALS: BP 126/72
[2022-04-14] MEDS: LOSARTAN 50 MG TAB PO SCH (09:33)
[2022-04-14] MEDS: amLODIPine 5 MG TAB PO SCH (09:34)
--- NOTE | 2022-04-16 09:23 | Progress Note ---
Assessment and Plan (1) TIA, CVA (cerebral vascular accident) ruled out Current Visit: Yes Status: Acute Plan to address problem: Placed on CVA protocol: CT head, neuro check, seizure precaution aspiration caution, fall precautions, physical therapy consulted, Occupational Therapy consulted, speech therapy consulted, carotid Doppler, echocardiogram, antiplatelet therapy, supportive care. (2) Carotid body tumor Current Visit: Yes Status: Acute Plan to address problem: Vascular surgery team consulted. Further care and evaluation as per vascular surgery team. (3) Lung mass Current Visit: Yes Status: Acute Plan to address problem: Outpatient oncology follow-up, supportive care. (4) DVT prophylaxis Current Visit: No Status: Acute Plan to address problem: SCD to bilateral lower extremities while in bed (5) Advance care planning Current Visit: Yes Status: Acute Plan to address problem: Disease education done, care plan discussed, diagnoses discussed, prognosis discussed, patient is full code. Patient knowledges understanding and agreement with care plan, +30 minutes. (6) Preventative health care Current Visit: Yes Status: Acute Plan to address problem: Patient counseled regarding balanced diet, outpatient follow-up with primary care physician for all age and risk factor appropriate screening test. +30 minutes. 04/12 Ordered MRI brain and neurology consult. But patient cannot get MRI as she has a pacemaker. Will wait for neurology evaluation. We will get a chest x-ray for patient history of lung mass. According to patient she was told by video coordinator that her lung mass is benign. Continue to follow. 04/[address] head today showed no acute changes. Pending vascular consult and recommendation for carotid body tumor. PT recommended home health PT OT and a straight cane-digital strategist senior manager notified. Subjective Date of service: 04/13/22 Interval history: Patient seen and examined. Medical records and medication list reviewed. No acute event overnight noted by the RN. Patient denies any chest pain or difficulty breathing. Patient is tolerating diet. Ordered repeat CT head as patient cannot get an MRI Discussed plan of care at bedside with patient. Objective - Exam Narrative Exam: GENERAL: well-developed elderly -[place] obese female lying on bed appeared to be in no discomfort. HEENT: Normocephalic. Atraumatic. No conjunctival congestion or icterus. Patient has moist mucous membranes. NECK: Supple. Trachea midline. CHEST/LUNGS: Clear to auscultated bilaterally, breathing nonlabored. No wheezes crackles or rhonchi. HEART/CARDIOVASCULAR: Regular in rate and rhythm. S1 and S2 positive. ABDOMEN: Abdomen is soft, nontender. Patient has normal bowel sounds. SKIN: There is no rash. Warm and dry. NEURO: No focal motor deficit. Follows command. MUSCULOSKELETAL: No joint effusion or tenderness. EXTRIMITY: No edema, no cyanosis or clubbing. PSYCH: Cooperative. - Labs CBC & Chem 7: 04/11/22 17:43 04/11/22 17:43 HEART Score - HEART Score Troponin: Troponin T < 0.010 ng/mL (0.00-0.029) 04/11/22 17:43
== END 2022-04-14 13:20 | disposition home or self-care (01) | DRG 69 ==
LOC: ED 17:15 → 3A 19:26 → 4A 22:31
PROVIDERS: ADMIT Internal Medicine; ATTEND Internal Medicine
DX: G45.9 Transient cerebral ischemic attack, unspecified (principal); R91.8 Other nonspecific abnormal finding of lung field; E11.9 Type 2 diabetes mellitus without complications; K21.9 Gastro-esophageal reflux disease without esophagitis; J44.9 Chronic obstructive pulmonary disease, unspecified; I10 Essential (primary) hypertension; D44.6 Neoplasm of uncertain behavior of carotid body; Z83.3 Family history of diabetes mellitus; Z88.2 Allergy status to sulfonamides; Z82.49 Family history of ischemic heart disease and other diseases of the circulatory system
CPT/HCPCS: 36415; 70450; 70470; 70496; 70498; 71045; 80053; 81001; 82550; 82553; 82962; 84484; 85007; 85025; 85610; 85670; 85730; 93005; 93306; 93880; G0378; C8929; Q9967